=== PATIENT | female | born 1975 | race Caucasian/White ===

== ENCOUNTER 2025-01-22 06:18 | Day surgery (SDC) | payer BC, SELFPAY | END 2025-01-22 14:43 | disposition home or self-care (01) | LOC: GI 06:18 | PROVIDERS: ATTENDING PHYSICIAN Internal Medicine | DX: Z12.11 Encounter for screening for malignant neoplasm of colon (principal); K22.2 Esophageal obstruction; R13.10 Dysphagia, unspecified; K20.90 Esophagitis, unspecified without bleeding | CPT/HCPCS: 43249; 43239; G0121; 88305; 88342 ==